=== PATIENT | female | born 1935 ===

== ENCOUNTER 2018-01-16 11:30 | Observation (INO) | payer MEDICAID, OTHER ==
[2018-01-16 11:33] VITALS: BMI 25.7
--- NOTE | 2018-01-16 11:33 | C.PDOC ---
History Of Present Illness LIMITED DUE TO CLIN COND, LANGUAGE PER FAMILY, PT FELL WHILE WALKING TO BATHROOM, FACE STRUCK EDGE OF TUB. NO LOC, NV. PER FAMILY, PT NOW DAZED AND CONFUSED. BASELINE AO3, FUNCTIONAL AND AMBUL W GAIT. PER EMS, PT AWAKE ON SCENE AND CONFUSED EN ROUTE, CURRENTLY UNCHANGED. +HTN ON INITIAL EMS ASSESSMENT. ROS UTO EXAM MOD DIST HEENT +R FACIAL SWELL W LAC, NO ACTIVE BLEEDING. EOMI; NOSE CLEAR; MANDIBLE AROM WO DIFF. NECK NO FOCAL CSPINE TEND NO GROSS DEFORM LUNGS CTA B/L NO W/R/R CV RRR ABD NEG NEURO NO GROSS FOCAL DEF, UNCOOPERATIVE W FOCUSED EXAM OR COMMANDS. APPEARS CONFUSED W FAMILY MEMBER, DOES NOT FOLLOW COMMANDS SKIN R FACIAL LAC EXT NO GROSS DEFORM REMAINDER NEG - HPI Chief Complaint (Nursing): Altered Mental Status History Per: Family History/Exam Limitations: clinical condition Injury Occurred (Timing): Just Before Arrival Past Medical History Reviewed: Historical Data, Nursing Documentation, Vital Signs Vital Signs: Last Vital Signs Temp 98.1 F 01/18/18 04:20 Pulse 94 H 01/18/18 04:20 Resp 20 01/18/18 04:20 BP 146/74 01/18/18 04:20 Pulse Ox 95 01/18/18 04:20 Family History: States: No Known Family Hx Review Of Systems Review Of Systems: ROS cannot be obtained secondary to pt's inabilty to answer questions. Physical Exam - Physical Exam Appears: Non-toxic, No Acute Distress Skin: Warm, Dry, Other (R FACIAL LAC) Head: Other (+R FACIAL SWELL W LAC, NO ACTIVE BLEEDING. EOMI; NOSE CLEAR; MANDIBLE AROM WO DIFF.) Eye(s): bilateral: PERRL Nose: Normal Oral Mucosa: Moist Lips: Normal Appearing Neck: Other (NO FOCAL CSPINE TEND NO GROSS DEFORM) Chest: Symmetrical Cardiovascular: Rhythm Regular, No Murmur Respiratory: Normal Breath Sounds, No Accessory Muscle Use Gastrointestinal/Abdominal: Soft, No Tenderness Extremity: Normal ROM, No Deformity, Other (NO GROSS DEFORM) Neurological/Psych: Other (NO GROSS FOCAL DEF, UNCOOPERATIVE W FOCUSED EXAM OR COMMANDS. APPEARS CONFUSED W FAMILY MEMBER, DOES NOT FOLLOW COMMANDS) ED Course And Treatment - Laboratory Results Result Diagrams: 01/16/18 11:54 01/16/18 11:54 - Radiology CXR: Interpreted by Me CXR Interpretation: Yes: No Acute Disease Laceration - Laceration Repair 4 Wound Length (In cm): 4 Description Of Wound: Irregular, Contused Tissue Wound Cleansed With: Betadine, Sterile Saline Anesthesia: Lidocaine 1%, With Epi Wound Examination: Irrigated With Saline, No FB With Wound Exploration Wound Closure: Suture Suture Technique And Material Used: Prolene (5.0), Vicryl (3.0) Wound Complexity: Complex Progress - Re-Evaluation Re-evaluation Note: 01/16/18 11:59 D/W DR LORENZO AWARE OF ER FINDINGS WILL ADMIT. CT PENDING 01/16/18 13:20 PER FAMILY, MS IMPROVED COMPARED TO INITIAL BUT STILL NOT COMPLETELY BACK TO BASELINE. NEURO NO FOCAL DEF. VSS. 01/16/18 14:16 SP LAC REPAIR, TOLERATED WELL. NO GROSS FOCAL NEURO DEF. PERSIST MILD CONFUSION BUT IMPROVED COMPARED TO INITIAL. WILL OBS RECOMMEND SUTURE REMOVAL 5-7 DAYS - Data Reviewed Data Reviewed: Lab, Diagnostic imaging, EKG, Old records - Critical Care Citical Care: Excluding Proc Time Critical Care Time: 90 minutes - Continuity of Care Discussed patient case with:: Patient, Family-HIPPA compliant, PMD Disposition Counseled Patient/Family Regarding: Studies Performed, Diagnosis - Disposition Disposition: HOSPITALIZED Disposition Time: 14:17 Condition: STABLE - POA Present On Arrival: Falls Or Trauma - Clinical Impression Clinical Impression: Eyebrow laceration, Facial abrasion, Periorbital contusion, Fall, Concussion syndrome - Scribe Statement The provider has reviewed the documentation as recorded by the Scribe (Sebastian Soto) All medical record entries made by the Scribe were at my direction and personally dictated by me. I have reviewed the chart and agree that the record accurately reflects my personal performance of the history, physical exam, medical decision making, and the department course for this patient. I have also personally directed, reviewed, and agree with the discharge instructions and disposition. Decision To Admit - Pt Status Changed To: Hospital Disposition Of: Observation - . Bed Request Type: Regular Admitting Physician: Mehrdad Lorenzo Patient Diagnosis: Eyebrow laceration, Facial abrasion, Periorbital contusion, Fall, Concussion syndrome
[2018-01-16] MEDS ORDERED: Tetanus/Diphtheria Toxoids 0.5 ml Syringe IM ONE ×2 (11:39→12:41)
[2018-01-16 12:04] LABS: BASO # 0.1 K/uL (0.0-0.2); BASO % 0.5 % (0.0-2.0); EOS # 0.4 K/uL (0.0-0.7); HEMOGLOBIN 13.7 g/dL (11.0-16.0); LYMPH # 2.2 K/uL (1.0-4.3); LYMPH % 15.6 % (20.0-40.0); MEAN CELL VOLUME 83.4 fL (81.0-99.0); MEAN CORPUSCULAR HEMOGLOBIN 27.9 pg (27.0-31.0); MEAN CORPUSCULAR HGB CONC 33.5 g/dL (33.0-37.0); MEAN PLATELET VOLUME 7.6 fL (7.2-11.7); MONO # 0.6 K/uL (0.0-0.8); MONO % 4.4 % (0.0-10.0); NEUT # 10.6 K/uL (1.8-7.0); NEUT % 76.5 % (50.0-75.0); NRBC % 0.1 % (0.0-2.0); RBC 4.92 Mil/uL (3.80-5.20); WHITE BLOOD COUNT 13.8 K/uL (4.8-10.8)
[2018-01-16 12:16] LABS: ALBUMIN 4.2 g/dL (3.5-5.0); ALT/SGPT 23 U/L (9-52); AST/SGOT 29 U/L (14-36); BLOOD UREA NITROGEN 8 mg/dL (7-17); CALCIUM 9.8 mg/dl (8.6-10.4); GFR AFRICAN-AMERICAN > 60; GFR NON-AFRICAN AMERICAN > 60
[2018-01-16 12:18] LABS: PROTHROMBIN TIME 11.3 SECONDS (9.7-12.2)
--- NOTE | 2018-01-16 12:34 | CT ---
PROCEDURE: CT HEAD WITHOUT CONTRAST. HISTORY: trauma fall COMPARISON: None available. TECHNIQUE: Axial computed tomography images were obtained through the head/brain without intravenous contrast. Radiation dose: Total exam DLP = 964.42 mGy-cm. This CT exam was performed using one or more of the following dose reduction techniques: Automated exposure control, adjustment of the mA and/or kV according to patient size, and/or use of iterative reconstruction technique. FINDINGS: HEMORRHAGE: No intracranial hemorrhage. BRAIN: Diffuse atrophy with prominence of the ventricles and sulci noted. No mass effect or edema. Dense intracranial atherosclerosis. Moderate scattered periventricular and subcortical white matter hypodensities, which are nonspecific, but often seen with chronic microvascular ischemic disease. Patchy hypodensities or encephalomalacia in the region of the right basal ganglia as well as tiny probable bilateral lacunar infarcts. Please note that MRI with diffusion imaging is more sensitive in the detection of acute ischemic event. VENTRICLES: No hydrocephalus. CALVARIUM: Unremarkable. PARANASAL SINUSES: Mucosal thickening involving the ethmoid air cells. Mucosal polyp/ retention polyps within the left maxillary sinus. MASTOID AIR CELLS: Unremarkable as visualized. No inflammatory changes. OTHER FINDINGS: Right frontal scalp and preseptal soft tissue swelling. IMPRESSION: Right frontal scalp and preseptal soft tissue swelling. Moderate scattered nonspecific white matter changes. Patchy hypodensities or encephalomalacia in the region of the right basal ganglia as well as tiny probable bilateral lacunar infarcts. Please note that MRI with diffusion imaging is more sensitive in the detection of acute ischemic event. Additional findings as above.
--- NOTE | 2018-01-16 12:36 | CT ---
PROCEDURE: CT Cervical Spine without contrast HISTORY: <trauma fall> COMPARISON: None available. TECHNIQUE: Axial computed tomography images were obtained of the cervical spine without the use of intravenous contrast. Coronal and sagittal reformatted images were created and reviewed. Radiation dose: Total exam DLP = 550.85 mGy-cm. This CT exam was performed using one or more of the following dose reduction techniques: Automated exposure control, adjustment of the mA and/or kV according to patient size, and/or use of iterative reconstruction technique. FINDINGS: VERTEBRAE: The vertebral bodies are maintained in height. There is mild reversal of the normal lordotic curvature which may indicate muscular spasm. Normal alignment is otherwise maintained. The atlantoaxial articulation and odontoid process are intact. DISCS/SPINAL CANAL/NEURAL FORAMINA: There is narrowing of the C4-5, C5-6 and C6-7 intervertebral disc spaces consistent with degenerative disc disease. There is mild central spinal stenosis at C4-5. There is moderate to severe central spinal stenosis at C5-6. No significant central spinal stenosis is seen at C6-7. Multilevel neural foraminal stenosis is seen in the cervical spine. PARASPINAL SOFT TISSUES: There are 2 ground-glass nodules identified in the left upper lobe, 3 mm and 4 mm respectively. No followup is advised as per Fleischner society criteria. OTHER FINDINGS: None. IMPRESSION: No evidence of fracture or dislocation. Multilevel degenerative disc disease. Multilevel central spinal stenosis as described. Possible muscular spasm.
[2018-01-16] MEDS ORDERED: Labetalol 25mg/5ml Syringe IVP STA (12:37)
[2018-01-16 12:38] VITALS: RESP 20
--- NOTE | 2018-01-16 12:44 | CT ---
CT maxillofacial bones without IV contrast Indication: Trauma, fall Comparison: None available Technique: Axial computed tomography images were obtained of the maxillofacial bones without the use of intravenous contrast. Coronal and sagittal reformatted images were generated and reviewed. This CT exam was performed using 1 or more of the following dose reduction techniques: Automated exposure control, adjustment of the MAA and/or kV according to patient size, and/or use of iterative reconstruction technique. Radiation dose: Total exam DLP = 892.93 mGy-cm. Findings: Right facial and preseptal soft tissue swelling. Evidence of laceration involving the scalp soft tissues on the right. The facial bones appear intact without acute displaced fracture. Postsurgical changes of the left orbit. The orbits appear otherwise unremarkable. The mastoid air cells appear clear. Mucosal thickening of the ethmoid air cells. Mucosal polyps or retention cysts within the left maxillary sinus. The paranasal sinuses appear otherwise clear. Dense bilateral carotid artery calcifications. Degenerative changes of the included portions cervical spine. Impression: Right facial and preseptal soft tissue swelling. Evidence of laceration involving the scalp soft tissues on the right. No acute displaced fracture identified. Additional findings as above.
[2018-01-16] MEDS ORDERED: Lidocaine 2% w Epi 1:200,000 Pf Inj INJ ONE (13:15)
[2018-01-16] MEDS ORDERED: Lidocaine 1%/Epinephrine 1:100000 30 ml vial IJ ONE (13:30)
[2018-01-16 13:56] LABS: URINE BILIRUBIN NEGATIVE (NEGATIVE); URINE BLOOD 1+ (NEGATIVE); URINE CLARITY Clear (Clear); URINE COLOR Straw (YELLOW); URINE GLUCOSE (UA) 2+ mg/dL (Normal); URINE PROTEIN 1+ mg/dL (NEGATIVE); URINE UROBILINOGEN NORMAL mg/dL (0.2-1.0)
[2018-01-16 13:58] LABS: URINE LEUKOCYTE ESTERASE NEGATIVE Leu/uL (Negative)
--- NOTE | 2018-01-16 14:59 | RAD ---
Pelvis two views History: Fall. Comparison: None available. Findings: Moderate degenerative changes of the bilateral hip joints with subchondral sclerosis. Mild osteitis pubis. Degenerative changes in the lower lumbar spine with endplate sclerosis. Limited evaluation of the sacrum given overlying bowel gas. Punctate radiopaque density projects over the right hemiabdomen. Surgical clips in the mid abdomen. Impression: Degenerative changes. If pain persists, further evaluation with MRI is recommended.
--- NOTE | 2018-01-16 16:26 | RAD ---
PROCEDURE: CHEST RADIOGRAPH, 1 VIEW HISTORY: trauma fall COMPARISON: None available. FINDINGS: LUNGS: Clear. PLEURA: No pneumothorax or pleural fluid seen. CARDIOVASCULAR: Normal. OSSEOUS STRUCTURES: Bilateral glenohumeral osteoarthritis. No acute fracture identified. VISUALIZED UPPER ABDOMEN: Normal. OTHER FINDINGS: None. IMPRESSION: No active disease.
[2018-01-16 20:07] LABS: CK-MB 3.18 ng/mL (0.0-3.38)
[2018-01-16] MEDS: (Novolin R) Insulin Human Regular 100 units/ml vial SC SCH (22:00)
--- NOTE | 2018-01-16 23:01 | CP.PCM.HP ---
History of Present Illness - History of Present Illness History of Present Illness: CC: Fall, INJURY TO RIGHT SIDE OF FOREHEAD ,ALTERRED MENTAL STATUS HPI: PT IS A 82 YEAR OLD BULGARIAN FEMALE WITH H/O HTN, DM, HYPERLIPIDEMIA WHO IS COMPLAINT WITH DIET, MEDICATION AND FOLOW UPON DAY OF ADDMISSON SHE FELL WHILE WALKING TO BATHROOM,SUSTAINED FALL AND FACE STRUCK EDGE OF TUB. NO LOC, NV. PER FAMILY, PT NOW DAZED AND CONFUSED. BASELINE AO3, FUNCTIONAL AND AMBUL W GAIT. PER EMS, PT AWAKE ON SCENE AND CONFUSED EN ROUTE, CURRENTLY UNCHANGED. +HTN ON INITIAL EMS ASSESSMENT. Present on Admission - Present on Admission Any Indicators Present on Admission: Yes Past Patient History - Past Social History Smoking Status: Never Smoked - CARDIAC Hx Hypertension: Yes - ENDOCRINE/METABOLIC Hx Diabetes Mellitus Type 2: Yes - PSYCHIATRIC Hx Substance Use: No Meds Allergies/Adverse Reactions: Allergies Allergy/AdvReac Type Severity Reaction Status Date / Time No Known Allergies Allergy Verified 01/16/18 11:33 Physical Exam - Constitutional Appears: Well, No Acute Distress Additional comments: MOD DISTRESSED . - Head Exam Additional comments: HEENT +R FACIAL SWELL W LAC, NO ACTIVE BLEEDING. EOMI; NOSE CLEAR; MANDIBLE AROM WO DIFF - Neck Exam Neck exam: Positive for: Normal Inspection - Respiratory Exam Respiratory Exam: Clear to Auscultation Bilateral, NORMAL BREATHING PATTERN - Cardiovascular Exam Cardiovascular Exam: REGULAR RHYTHM - GI/Abdominal Exam GI & Abdominal Exam: Normal Bowel Sounds, Soft. absent: Tenderness - Neurological Exam Additional comments: NEURO NO GROSS FOCAL DEF, UNCOOPERATIVE W FOCUSED EXAM OR COMMANDS. APPEARS CONFUSED W FAMILY MEMBER, DOES NOT FOLLOW COMMANDS - Psychiatric Exam Psychiatric exam: Normal Affect - Skin Skin Exam: Dry, Intact, Normal Color, Warm Additional comments: SKIN R FACIAL LAC Results - Vital Signs Recent Vital Signs: Last Vital Signs Temp Pulse 99 H 01/16/18 14:40 Resp 20 01/16/18 14:40 BP 153/73 H 01/16/18 14:40 Pulse Ox 98 01/16/18 14:40 - Labs Result Diagrams: 01/16/18 11:54 01/16/18 11:54 Labs: Laboratory Results - last 24 hr 01/16/18 01/16/18 01/16/18 11:54 11:54 11:54 WBC 13.8 H RBC 4.92 Hgb 13.7 Hct 41.0 MCV 83.4 MCH 27.9 MCHC 33.5 RDW 14.0 Plt Count 357 MPV 7.6 Neut % (Auto) 76.5 H Lymph % (Auto) 15.6 L Butts % (Auto) 4.4 Eos % (Auto) 3.0 Baso % (Auto) 0.5 Neut # (Auto) 10.6 H Lymph # (Auto) 2.2 Butts # (Auto) 0.6 Eos # (Auto) 0.4 Baso # (Auto) 0.1 PT 11.3 INR 1.0 APTT 28 Sodium 136 Potassium 3.7 Chloride 97 L Carbon Dioxide 25 Anion Gap 18 BUN 8 Creatinine 0.4 L Est GFR ( Amer) > 60 Est GFR (Non-Af Amer) > 60 POC Glucose (mg/dL) Random Glucose 230 H Calcium 9.8 Total Bilirubin 0.6 AST 29 ALT 23 Alkaline Phosphatase 85 Total Creatine Kinase CK-MB (Mass) Troponin I Total Protein 8.3 Albumin 4.2 Globulin 4.2 H Albumin/Globulin Ratio 1.0 Urine Color Urine Clarity Urine pH Ur Specific [place] Urine Protein Urine Glucose (UA) Urine Ketones Urine Blood Urine Nitrate Urine Bilirubin Urine Urobilinogen Ur Leukocyte Esterase Urine WBC (Auto) Urine RBC (Auto) Blood Type Antibody Screen 01/16/18 01/16/18 01/16/18 11:54 13:40 19:40 WBC RBC Hgb Hct MCV MCH MCHC RDW Plt Count MPV Neut % (Auto) Lymph % (Auto) Butts % (Auto) Eos % (Auto) Baso % (Auto) Neut # (Auto) Lymph # (Auto) Butts # (Auto) Eos # (Auto) Baso # (Auto) PT INR APTT Sodium Potassium Chloride Carbon Dioxide Anion Gap BUN Creatinine Est GFR ( Amer) Est GFR (Non-Af Amer) POC Glucose (mg/dL) Random Glucose Calcium Total Bilirubin AST ALT Alkaline Phosphatase Total Creatine Kinase 421 H CK-MB (Mass) 3.18 Troponin I < 0.0120 Total Protein Albumin Globulin Albumin/Globulin Ratio Urine Color Straw Urine Clarity Clear Urine pH 7.0 Ur Specific [place] 1.010 Urine Protein 1+ H Urine Glucose (UA) 2+ H Urine Ketones Negative Urine Blood 1+ H Urine Nitrate Negative Urine Bilirubin Negative Urine Urobilinogen Normal Ur Leukocyte Esterase Negative Urine WBC (Auto) 2 Urine RBC (Auto) 4 H Blood Type B POSITIVE Antibody Screen Negative 01/16/18 21:00 WBC RBC Hgb Hct MCV MCH MCHC RDW Plt Count MPV Neut % (Auto) Lymph % (Auto) Butts % (Auto) Eos % (Auto) Baso % (Auto) Neut # (Auto) Lymph # (Auto) Butts # (Auto) Eos # (Auto) Baso # (Auto) PT INR APTT Sodium Potassium Chloride Carbon Dioxide Anion Gap BUN Creatinine Est GFR ( Amer) Est GFR (Non-Af Amer) POC Glucose (mg/dL) 183 H Random Glucose Calcium Total Bilirubin AST ALT Alkaline Phosphatase Total Creatine Kinase CK-MB (Mass) Troponin I Total Protein Albumin Globulin Albumin/Globulin Ratio Urine Color Urine Clarity Urine pH Ur Specific [place] Urine Protein Urine Glucose (UA) Urine Ketones Urine Blood Urine Nitrate Urine Bilirubin Urine Urobilinogen Ur Leukocyte Esterase Urine WBC (Auto) Urine RBC (Auto) Blood Type Antibody Screen Assessment & Plan (1) Concussion syndrome Status: Acute (2) Facial abrasion Status: Acute (3) Fall Status: Acute (4) Periorbital contusion Status: Acute (5) HTN (hypertension) Status: Acute (6) Diabetes Status: Acute (7) Dizziness Status: Acute
[2018-01-17 01:42] LABS: CK-MB 2.48 ng/mL (0.0-3.38)
[2018-01-17] MEDS: (Novolin R) Insulin Human Regular 100 units/ml vial SC SCH ×4 (07:49→21:33)
[2018-01-17] MEDS: Multiple Vitamins Tab PO SCH (09:07)
[2018-01-17] MEDS: Enoxaparin 40 mg Syringe SC SCH (09:07)
[2018-01-17] MEDS ORDERED: Metoprolol Succinate 50 mg XL Tab PO SCH (10:00)
[2018-01-17] MEDS ORDERED: Metoprolol Succinate 12.5 mg XL PO SCH (10:00)
[2018-01-17] MEDS ORDERED: Nitroglycerin 2% Ointment Foilpak UD TOP STA (23:32)
[2018-01-17] MEDS ORDERED: Dextrose 5%/0.45% NS 1,000 ML IV SCH (23:45)
--- NOTE | 2018-01-17 23:58 | CP.PCM.PN ---
Subjective - Date & Time of Evaluation Date of Evaluation: 01/17/18 Time of Evaluation: 18:00 - Subjective Subjective: Patient seen today , pt is still bradycardic, pt has b/l lacunar infarct, pt is for MRI, Objective - Vital Signs/Intake and Output Vital Signs (last 24 hours): Temp Pulse Resp BP Pulse Ox 98.2 F 69 20 173/63 H 97 01/17/18 15:25 01/17/18 22:00 01/17/18 22:00 01/17/18 22:00 01/17/18 15:25 - Medications Medications: Current Medications Aspirin (Ecotrin) 81 mg PO DAILY [facility] Last Admin: 01/17/18 09:07 Dose: 81 mg Enoxaparin Sodium (Lovenox) 40 mg SC DAILY [facility] Last Admin: 01/17/18 09:07 Dose: 40 mg Hydrochlorothiazide (Microzide) 12.5 mg PO DAILY [facility] Last Admin: 01/17/18 09:07 Dose: 12.5 mg Dextrose/Sodium Chloride (Dextrose 5%/0.45% Ns 1000 Ml) 1,000 mls @ 60 mls/hr IV .[id number] [facility] Insulin Human Regular (Novolin R) 0 unit SC ACHS [facility] PRN Reason: Protocol Last Admin: 01/17/18 21:33 Dose: Not Given Losartan Potassium (Cozaar) 100 mg PO DAILY [facility] Last Admin: 01/17/18 09:06 Dose: 100 mg Metformin HCl (Glucophage Xr) 500 mg PO DAILY [facility] Last Admin: 01/17/18 09:07 Dose: 500 mg Multivitamins (Hexavitamin) 1 tab PO DAILY [facility] Last Admin: 01/17/18 09:07 Dose: 1 tab - Labs Labs: 01/16/18 11:54 01/16/18 11:54 PT 11.3 SECONDS (9.7-12.2) 01/16/18 11:54 INR 1.0 01/16/18 11:54 APTT 28 SECONDS (21-34) 01/16/18 11:54 - Constitutional Appears: No Acute Distress - Head Exam Head Exam: ATRAUMATIC, NORMAL INSPECTION, NORMOCEPHALIC - Eye Exam Eye Exam: EOMI, Normal appearance, PERRL Pupil Exam: NORMAL ACCOMODATION, PERRL - Respiratory Exam Respiratory Exam: Clear to Ausculation Bilateral, NORMAL BREATHING PATTERN - Cardiovascular Exam Cardiovascular Exam: REGULAR RHYTHM, +S1, +S2. absent: Murmur - GI/Abdominal Exam GI & Abdominal Exam: Soft, Normal Bowel Sounds. absent: Tenderness Assessment and Plan (1) Concussion syndrome Status: Acute (2) Facial abrasion Status: Acute (3) Fall Status: Acute (4) Periorbital contusion Status: Acute (5) HTN (hypertension) Status: Acute (6) Diabetes Status: Acute (7) Dizziness Status: Acute
[2018-01-18 04:43] VITALS: TEMP 98.1
[2018-01-18] MEDS: (Novolin R) Insulin Human Regular 100 units/ml vial SC SCH ×2 (08:15→11:46)
[2018-01-18 08:51] VITALS: BP 162/82; PULSE 97; O2SAT 94
[2018-01-18] MEDS: Enoxaparin 40 mg Syringe SC SCH (10:58)
[2018-01-18] MEDS: Multiple Vitamins Tab PO SCH (10:58)
--- NOTE | 2018-01-18 11:16 | MRI ---
PROCEDURE: MRI BRAIN WITHOUT CONTRAST HISTORY: s/p fall ? infarct on CT scan COMPARISON: Unenhanced head CT 01/16/2018. TECHNIQUE: Multiplanar, multisequence MR images of the brain were obtained without intravenous contrast enhancement. FINDINGS: HEMORRHAGE: There is no definite pattern of acute intracranial hemorrhage appreciable. A few cavernomata are identified scattered infrequently at the bilateral frontal lobes as well as bilateral thalami. DWI: No evidence of an acute or early subacute infarction. BRAIN PARENCHYMA: Diffuse cerebral atrophy and chronic microangiopathy are reiterated as well as dilated perivascular spaces at the bilateral basal ganglia in particular. Underlying bilateral chronic lacunes may be present at the bilateral basal ganglia as well. Chronic lacunes are suspected at the bilateral frontal vertices infrequently. There is no mass effect or suspicious extra-axial collection appreciated. Midline brain anatomy is remarkable for chronic microangiopathy in the amberly and the remainder of the posterior fossa is unremarkable. VENTRICLES: Unremarkable. No hydrocephalus. CRANIUM: Unremarkable. ORBITS: Grossly unremarkable. PARANASAL SINUSES/MASTOIDS: Limited mucosal inflammatory changes affect the bilateral maxillary sinuses. VASCULAR SYSTEM: Skull base flow voids intact. OTHER FINDINGS: None. IMPRESSION: Age related neuro degenerative changes are identified as well as chronic lacune is at the bilateral frontal lobes infrequently, near the vertex, and the bilateral basal ganglia. No definite acute or subacute brain infarction identified throughout this examination. No suspicious extra-axial fluid collections identified although a few cavernomas are identified at the bilateral frontal lobes and basal ganglia.
--- NOTE | 2018-01-18 12:30 | CARD ---
APPROVED REPORT EKG Measurement Heart [id number] <Conclusion> Sinus rhythm with 1st degree AV block Possible Left atrial enlargement Nonspecific intraventricular block Cannot rule out Septal infarct, age undetermined T wave abnormality, consider anterior ischemia Abnormal ECG
--- NOTE | 2018-01-18 12:43 | CARD ---
APPROVED REPORT EXAM: Two-dimensional and M-mode echocardiogram with Doppler and color Doppler. Other Information Quality : GoodRhythm : INDICATION Dizziness and Vertigo Syncope RISK FACTORS Hypertension Hyperlipidemia Diabetes 2D DIMENSIONS IVSd1.1 (0.7-1.1cm)LVDd3.4 (3.9-5.9cm) PWd1.1 (0.7-1.1cm)LVDs2.4 (2.5-4.0cm) FS (%) 29.5 %LVEF (%)57.7 (>50%) M-Mode DIMENSIONS RVDd1.26 (2.1-3.2cm)Left Atrium (MM)2.92 (2.5-4.0cm) IVSd0.76 (0.7-1.1cm)Aortic Root2.35 (2.2-3.7cm) LVDd3.96 (4.0-5.6cm)Aortic Cusp Exc.1.45 (1.5-2.0cm) PWd0.76 (0.7-1.1cm)FS (%) 53 % LVDs1.85 (2.0-3.8cm)LVEF (%)85 (>50%) Mitral Valve MV E Yrrogtyy08.3cm/sMV A Hybdtmyg664.0cm/sE/A ratio0.3 TDI E/Lateral E'0.0E/Medial E'0.0 Tricuspid Valve TR Peak [id number]/sTR Peak Gr.[id number] LEFT VENTRICLE The left ventricle is normal size. There is borderline concentric left ventricular hypertrophy. The left ventricular function is normal. The left ventricular ejection fraction is within the normal range. There is normal LV segmental wall motion. The left ventricular diastolic function is normal. Transmitral Doppler flow pattern is Grade I-abnormal relaxation pattern. No left ventricle thrombus noted on this study. There is no ventricular septal defect visualized. There is no left ventricular aneurysm. There is no mass noted in the left ventricle. RIGHT VENTRICLE The right ventricle is normal size. There is normal right ventricular wall thickness. The right ventricular systolic function is normal. ATRIA The left atrium size is normal. The right atrium size is normal. The interatrial septum is intact with no evidence for an atrial septal defect. AORTIC VALVE The aortic valve is normal in structure. No aortic regurgitation is present. There is no aortic valvular stenosis. There is no aortic valvular vegetation. MITRAL VALVE The mitral valve is normal in structure. There is no mitral valve stenosis. There is no mitral valve regurgitation noted. TRICUSPID VALVE The tricuspid valve is normal in structure. There is no tricuspid valve regurgitation noted. PULMONIC VALVE The pulmonary valve is normal in structure. GREAT VESSELS The aortic root is normal in size. The ascending aorta is normal in size. The pulmonary artery is normal. The IVC is normal in size and collapses >50% with inspiration. PERICARDIAL EFFUSION There is a trace circumferential pericardial effusion. <Conclusion> There is borderline concentric left ventricular hypertrophy. The left ventricular function is normal. The left ventricular ejection fraction is within the normal range. The left ventricular diastolic function is normal. Transmitral Doppler flow pattern is Grade I-abnormal relaxation pattern. lv ef iis 60%.
--- NOTE | 2018-01-18 17:09 | CP.PCM.PN ---
Subjective - Date & Time of Evaluation Date of Evaluation: 01/18/18 Time of Evaluation: 11:50 - Subjective Subjective: Patient seen today awake, alert, denies any headache, abdominal pain, dizziness , chest pain, sob No overnight events reported by RN a febrile Objective - Vital Signs/Intake and Output Vital Signs (last 24 hours): Temp Pulse Resp BP Pulse Ox 98.1 F 97 H 20 162/82 H 94 L 01/18/18 08:50 01/18/18 08:50 01/18/18 08:50 01/18/18 08:50 01/18/18 08:50 Intake and Output: 01/18/18 01/18/18 06:59 18:59 Intake Total 900 Output Total 800 Balance 100 - Labs Labs: 01/16/18 11:54 01/16/18 11:54 PT 11.3 SECONDS (9.7-12.2) 01/16/18 11:54 INR 1.0 01/16/18 11:54 APTT 28 SECONDS (21-34) 01/16/18 11:54 - Constitutional Appears: Well, No Acute Distress Assessment and Plan - Assessment and Plan (Free Text) Assessment: A/P 82 yr old femla e admitted s/p fall at home with Eyebrow laceration, Facial abrasion, Periorbital contusion, Fall, Concussion syndrome MRI - done - Negative for any infarcts
--- NOTE | 2018-01-18 23:09 | CP.PCM.DIS ---
Provider - Provider Date of Admission: 01/16/18 14:18 Attending physician: Mehrdad Peters MD Time Spent in preparation of Discharge (in minutes): 45 Diagnosis - Discharge Diagnosis (1) Concussion syndrome Status: Acute (2) Facial abrasion Status: Acute (3) Fall Status: Acute (4) Periorbital contusion Status: Acute (5) HTN (hypertension) Status: Acute (6) Diabetes Status: Acute (7) Dizziness Status: Acute Hospital Course - Lab Results Lab Results: Most Recent Lab Values WBC 13.8 K/uL (4.8-10.8) H 01/16/18 11:54 RBC 4.92 Mil/uL (3.80-5.20) 01/16/18 11:54 Hgb 13.7 g/dL (11.0-16.0) 01/16/18 11:54 Hct 41.0 % (34.0-47.0) 01/16/18 11:54 MCV 83.4 fL (81.0-99.0) 01/16/18 11:54 MCH 27.9 pg (27.0-31.0) 01/16/18 11:54 MCHC 33.5 g/dL (33.0-37.0) 01/16/18 11:54 RDW 14.0 % (11.5-14.5) 01/16/18 11:54 Plt Count 357 K/uL (130-400) 01/16/18 11:54 MPV 7.6 fL (7.2-11.7) 01/16/18 11:54 Neut % (Auto) 76.5 % (50.0-75.0) H 01/16/18 11:54 Lymph % (Auto) 15.6 % (20.0-40.0) L 01/16/18 11:54 [place] % (Auto) 4.4 % (0.0-10.0) 01/16/18 11:54 Eos % (Auto) 3.0 % (0.0-4.0) 01/16/18 11:54 Baso % (Auto) 0.5 % (0.0-2.0) 01/16/18 11:54 Neut # (Auto) 10.6 K/uL (1.8-7.0) H 01/16/18 11:54 Lymph # (Auto) 2.2 K/uL (1.0-4.3) 01/16/18 11:54 [place] # (Auto) 0.6 K/uL (0.0-0.8) 01/16/18 11:54 Eos # (Auto) 0.4 K/uL (0.0-0.7) 01/16/18 11:54 Baso # (Auto) 0.1 K/uL (0.0-0.2) 01/16/18 11:54 PT 11.3 SECONDS (9.7-12.2) 01/16/18 11:54 INR 1.0 01/16/18 11:54 APTT 28 SECONDS (21-34) 01/16/18 11:54 Sodium 136 mmol/L (132-148) 01/16/18 11:54 Potassium 3.7 mmol/L (3.6-5.2) 01/16/18 11:54 Chloride 97 mmol/L (98-107) L 01/16/18 11:54 Carbon Dioxide 25 mmol/L (22-30) 01/16/18 11:54 Anion Gap 18 (10-20) 01/16/18 11:54 BUN 8 mg/dL (7-17) 01/16/18 11:54 Creatinine 0.4 mg/dL (0.7-1.2) L 01/16/18 11:54 Est GFR ( Amer) > 60 01/16/18 11:54 Est GFR (Non-Af Amer) > 60 01/16/18 11:54 POC Glucose (mg/dL) 233 mg/dL (65-110) H 01/18/18 11:30 Random Glucose 230 mg/dL (65-105) H 01/16/18 11:54 Calcium 9.8 mg/dl (8.6-10.4) 01/16/18 11:54 Total Bilirubin 0.6 mg/dL (0.2-1.3) 01/16/18 11:54 AST 29 U/L (14-36) 01/16/18 11:54 ALT 23 U/L (9-52) 01/16/18 11:54 Alkaline Phosphatase 85 U/L (38-126) 01/16/18 11:54 Total Creatine Kinase 496 U/L (30-135) H 01/17/18 01:13 CK-MB (Mass) 2.48 ng/mL (0.0-3.38) 01/17/18 01:13 Troponin I < 0.0120 ng/mL (0.00-0.120) 01/17/18 01:13 Total Protein 8.3 g/dL (6.3-8.3) 01/16/18 11:54 Albumin 4.2 g/dL (3.5-5.0) 01/16/18 11:54 Globulin 4.2 gm/dL (2.2-3.9) H 01/16/18 11:54 Albumin/Globulin Ratio 1.0 (1.0-2.1) 01/16/18 11:54 Urine Color Straw (YELLOW) 01/16/18 13:40 Urine Clarity Clear (Clear) 01/16/18 13:40 Urine pH 7.0 (5.0-8.0) 01/16/18 13:40 Ur Specific [place] 1.010 (1.003-1.030) 01/16/18 13:40 Urine Protein 1+ mg/dL (NEGATIVE) H 01/16/18 13:40 Urine Glucose (UA) 2+ mg/dL (Normal) H 01/16/18 13:40 Urine Ketones Negative mg/dL (NEGATIVE) 01/16/18 13:40 Urine Blood 1+ (NEGATIVE) H 01/16/18 13:40 Urine Nitrate Negative (NEGATIVE) 01/16/18 13:40 Urine Bilirubin Negative (NEGATIVE) 01/16/18 13:40 Urine Urobilinogen Normal mg/dL (0.2-1.0) 01/16/18 13:40 Ur Leukocyte Esterase Negative [place]/uL (Negative) 01/16/18 13:40 Urine WBC (Auto) 2 /hpf (0-5) 01/16/18 13:40 Urine RBC (Auto) 4 /hpf (0-3) H 01/16/18 13:40 Blood Type B POSITIVE 01/16/18 11:54 Antibody Screen Negative 01/16/18 11:54 - Hospital Course Hospital Course: Patient seen today awake, alert, denies any headache, abdominal pain, dizziness , chest pain, sob No overnight events reported by RN a febrile Pt is stable for discharge MRI is neg fr acute CVA i pt had old infacrt Discharge Exam - Eye Exam Eye Exam: EOMI, Normal appearance, PERRL Pupil Exam: NORMAL ACCOMODATION, PERRL - ENT Exam ENT Exam: Mucous Membranes Moist - Respiratory Exam Respiratory Exam: Decreased Breath Sounds, Rales, Rhonchi - Cardiovascular Exam Cardiovascular Exam: REGULAR RHYTHM, +S1, +S2 - GI/Abdominal Exam GI & Abdominal Exam: Normal Bowel Sounds Discharge Plan - Discharge Medications Prescriptions: Losartan/Hydrochlorothiazide [Hyzaar 100-12.5 Tablet] 1 each PO DAILY #30 tablet - Follow Up Plan Condition: STABLE Disposition: HOME/ ROUTINE Instructions: High Blood Pressure in Adults, Heart Healthy Diet, Diabetes Exchange Diet, Concussion, Adult (DC), Losartan and Hydrochlorothiazide, Diabetic Meal Planning , Diabetes and Diet, Hypertension (DC) Additional Instructions: Please follow up with Dr. Peters office in 1 week Please continue medication as per med. rec. Referrals: Mehrdad Peters MD [Staff Provider] -
[2018-01-19] MEDS ORDERED: Metoprolol Succinate 12.5 mg XL PO SCH (10:00)
== END 2018-01-18 14:15 | disposition home or self-care (01) ==
LOC: C.ER 11:30 → C.9E 14:18 → C.6T 16:23
PROVIDERS: ADMIT Internal Medicine; ATTEND Internal Medicine
DX: S01.111A Laceration without foreign body of right eyelid and periocular area, initial encounter (principal); F07.81 Postconcussional syndrome; E78.5 Hyperlipidemia, unspecified; E11.9 Type 2 diabetes mellitus without complications; I10 Essential (primary) hypertension; S00.81XA Abrasion of other part of head, initial encounter; W18.30XA Fall on same level, unspecified, initial encounter; Y92.009 Unspecified place in unspecified non-institutional (private) residence as the place of occurrence of the external cause
CPT/HCPCS: 12013; 36415; 70450; 70486; 70551; 71045; 72125; 72170; 80053; 81001; 82948; 84484; 85025; 85610; 85730; 86850; 86900; 90471; 90714; 92610; 93005; 93306; 96374; 97116; 97162; 99285; G0378; G8978; G8979; G8996; G8997; G8998; J1650; J7042